=== PATIENT | female | born 1990 | race Caucasian/White ===

== ENCOUNTER → 2016-12-14 | Outpatient (CLI) | payer OTHER ==
[~2016-12-14] MED LIST: ALUMSUS2 PO; CALC500C3 PO; CLON0.5T3 PO; FAMO20TA11 PO; FLUT0.0529 NAE; MAGN400T6 PO; MULT-513 PO; NAPR-201 PO; ONDA4TAB65 PO; POLY335040 PO
== END | disposition home or self-care (01) ==
LOC: C.LABSPEC 17:06
PROVIDERS: ATTEND Urology
DX: R31.0 Gross hematuria (principal); R32 Unspecified urinary incontinence

== ENCOUNTER 2017-02-12 00:10 | Emergency (ER) | payer OTHER ==
[~2017-02-12] VITALS: Ht 171.5 cm; Wt 53.4 kg
[2017-02-12 00:15] VITALS: TEMP 36.7; Ht 171.5 cm; Wt 53.4 kg
[2017-02-12] MEDS ORDERED: DiphenhydrAMINE HCL 50 MG/ML VIAL IV STA (00:25)
[2017-02-12] MEDS ORDERED: PROCHLORPERAZINE 5 MG/ML 2 ML VIAL IV STA (00:25)
[2017-02-12] MEDS ORDERED: SODIUM CHLORIDE 0.9% 500ML 500 ML IV STA (00:25)
[2017-02-12] MEDS ORDERED: KETOROLAC TROMETHAMINE 30 MG/ML VIAL IV STA (00:25)
[2017-02-12 00:45] VITALS: O2SAT 98
[2017-02-12 01:00] LABS: BASO % 0.5 %; BASO ABS # 0.04 K/uL (0-0.2); EOS % 1.5 %; EOS ABS # 0.13 K/uL (0-0.5); HEMATOCRIT 38.9 % (37-47); HEMOGLOBIN 12.4 g/dL (12.0-16.0); IG# 0.02 K/uL (0.00-0.02); LYMPH % 25.5 %; LYMPH ABS # 2.21 K/uL (1.2-3.4); MEAN CELL VOLUME 88.6 fL (80-100); MEAN CORPUSCULAR HEMOGLOBIN 28.2 pg (25-34); MEAN CORPUSCULAR HGB CONC 31.9 g/dl (32-36); MEAN PLATELET VOLUME 9.9 fL (7.4-10.4); MONO % 9.6 %; MONO ABS # 0.83 K/uL (0.11-0.59); NEUT % 62.7 %; NEUT ABS # 5.42 K/uL (1.4-6.5); PLATELET COUNT 228 K/uL (130-400); RED CELL DISTRIBUTION WIDTH CV 12.7 % (11.5-14.5); RED CELL DISTRIBUTION WIDTH SD 41.2 fL (36.4-46.3); WHITE BLOOD COUNT 8.65 K/uL (4.8-10.8)
[2017-02-12 01:17] LABS: ALBUMIN 3.8 gm/dl (3.4-5.0); ALT/SGPT 18 U/L (12-78); BLOOD UREA NITROGEN 12 mg/dl (7-18); CALCIUM 8.3 mg/dl (8.5-10.1); CARBON DIOXIDE 26 mmol/L (21-32); GLUCOSE 101 mg/dl (70-99); POTASSIUM 3.5 mmol/L (3.5-5.1); SODIUM 138 mmol/L (136-145)
[2017-02-12 01:20] LABS: ALKALINE PHOSPHATASE 58 U/L (45-117); AST/SGOT 15 U/L (15-37); TOTAL PROTEIN 7.4 gm/dl (6.4-8.2)
[2017-02-12] MEDS ORDERED: TROLAMINE SALICYLATE 10% CRM 255 APPLN/85 GM TUBE EXT STA (02:27)
--- NOTE | 2017-02-12 02:42 | EMERGENCY ROOM VISIT NOTE ---
History First contact with patient: 00:20 Chief Complaint: FLANK PAIN Stated Complaint: MID LFT BACK PAIN,STOMACH PAIN,KIDNEY INFECTION History of Present Illness The patient is a 26 year old female who presents to the Emergency Room with complaints of right flank pain that radiates to her groin for the past few days steadily getting worse and is currently on Omnicef for kidney infection by [facility] for the past 2 days. No recent antibiotics. Patient states Keflex as makes her nauseous. She is not severely allergic to it. No recent UTIs. Patient denies chest pain, dyspnea, vomiting, diarrhea, vaginal itching or discharge. Pain currently 7 out of 10. Nothing makes it better or worse. It is described as aching. Review of Systems See HPI for pertinent positives & negatives. A total of 10 systems reviewed and were otherwise negative. Past Medical/Surgical History Medical Problems: (1) Anorexia (2) Anxiety (3) Depression (4) Tardive dyskinesia Surgical Problems: (1) S/P cholecystectomy Family History Patient reports no known family medical history. Social History Smoking Status: Never Smoker Alcohol Use: none Marital Status: in relationship Housing Status: lives with family Occupation Status: employed Current/Historical Medications Scheduled PRN Calcium Carbonate (Tums), 500-1,000 MG PO UD PRN for Heartburn Ondansetron Hcl (Zofran), 4 MG PO Q12H PRN for Nausea Physical Exam Vital Signs Date Time Temp Pulse Resp B/P (MAP) Pulse Ox O2 Delivery O2 Flow Rate FiO2 02/12/17 02:06 63 02/12/17 02:06 89 18 116/64 98 Room Air 02/12/17 00:45 98 Room Air 02/12/17 00:15 36.7 82 18 129/82 99 Room Air Physical Exam VITALS: Vitals are noted on the nurse's note and reviewed by myself. Vital signs stable. GENERAL: White female, in no acute distress, nondiaphoretic, well-developed well -nourished. SKIN: The skin was without rashes, erythema, edema, or bruising. There is no tenting of the skin. Capillary reflex less than 2 seconds. HEAD: Normocephalic atraumatic. EARS: External auditory canals clear, tympanic membranes pearly aranda without erythema or effusion bilaterally. EYES: Pupils equal round and reactive to light and accommodation. Conjunctivae without injection, sclerae without icterus. Extraocular movements intact. NOSE: Patent, turbinates without inflammation or discharge. MOUTH: Mucous membranes moist. Pharynx without erythema or exudate. Uvula midline. Airway patent. Tongue does not deviate. NECK: Supple without nuchal rigidity. No lymphadenopathy. No thyromegaly. Cervical spine is nontender. No JVD. HEART: Regular rate and rhythm without murmurs gallops or rubs. LUNGS: Clear to auscultation bilaterally without wheezes, rales or rhonchi. No dullness to percussion. No retractions or accessory muscle use. ABDOMEN: Positive bowel sounds x 4. Normal tympanic percussion. Soft, nontender, without masses or organomegaly. Finnegan sign negative. No guarding or rebound tenderness. Left CVA tenderness MUSCULOSKELETAL: No muscle atrophy, erythema, or edema noted. NEURO: Patient was alert and oriented to person place and time. Normal sensation to light and sharp touch. No focal neurological deficits. Medical Decision & Procedures Laboratory Results 02/12/17 00:45 Red Blood Count 4.39, Mean Corpuscular Volume 88.6, Mean Corpuscular Hemoglobin 28.2, Mean Corpuscular Hemoglobin Concent 31.9, Mean Platelet Volume 9.9, Neutrophils (%) (Auto) 62.7, Lymphocytes (%) (Auto) 25.5, Monocytes (%) (Auto) 9.6, Eosinophils (%) (Auto) 1.5, Basophils (%) (Auto) 0.5, Neutrophils # (Auto) 5.42, Lymphocytes # (Auto) 2.21, Monocytes # (Auto) 0.83, Eosinophils # (Auto) 0.13, Basophils # (Auto) 0.04 02/12/17 00:45 Test 02/12/17 00:40 02/12/17 00:45 Urine Color YELLOW Urine Appearance CLEAR (CLEAR) Urine pH 6.0 (4.5-7.5) Urine Specific [place] 1.019 (1.000-1.030) Urine Protein NEG (NEG) Urine Glucose (UA) NEG (NEG) Urine Ketones NEG (NEG) Urine Occult Blood NEG (NEG) Urine Nitrite NEG (NEG) Urine Bilirubin NEG (NEG) Urine Urobilinogen NEG (NEG) Urine Leukocyte Esterase NEG (NEG) Urine Test NEG (NEG) White Blood Count 8.65 K/uL (4.8-10.8) Red Blood Count 4.39 M/uL (4.2-5.4) Hemoglobin 12.4 g/dL (12.0-16.0) Hematocrit 38.9 % (37-47) Mean Corpuscular Volume 88.6 fL (80-100) Mean Corpuscular Hemoglobin 28.2 pg (25-34) Mean Corpuscular Hemoglobin Concent 31.9 g/dl (32-36) Platelet Count 228 K/uL (130-400) Mean Platelet Volume 9.9 fL (7.4-10.4) Neutrophils (%) (Auto) 62.7 % Lymphocytes (%) (Auto) 25.5 % Monocytes (%) (Auto) 9.6 % Eosinophils (%) (Auto) 1.5 % Basophils (%) (Auto) 0.5 % Neutrophils # (Auto) 5.42 K/uL (1.4-6.5) Lymphocytes # (Auto) 2.21 K/uL (1.2-3.4) Monocytes # (Auto) 0.83 K/uL (0.11-0.59) Eosinophils # (Auto) 0.13 K/uL (0-0.5) Basophils # (Auto) 0.04 K/uL (0-0.2) RDW Standard Deviation 41.2 fL (36.4-46.3) RDW Coefficient of Variation 12.7 % (11.5-14.5) Immature Granulocyte % (Auto) 0.2 % Immature Granulocyte # (Auto) 0.02 K/uL (0.00-0.02) Anion Gap 6.0 mmol/L (3-11) Est Creatinine Clear Calc Drug Dose 90.6 ml/min Estimated GFR () 118.8 Estimated GFR (Non- 102.5 BUN/Creatinine Ratio 15.3 (10-20) Calcium Level 8.3 mg/dl (8.5-10.1) Total Bilirubin 0.3 mg/dl (0.2-1) Direct Bilirubin < 0.1 mg/dl (0-0.2) Aspartate Amino Transf (AST/SGOT) 15 U/L (15-37) Alanine Aminotransferase (ALT/SGPT) 18 U/L (12-78) Alkaline Phosphatase 58 U/L (45-117) Total Protein 7.4 gm/dl (6.4-8.2) Albumin 3.8 gm/dl (3.4-5.0) Medications Administered Medications (Trade) Dose Ordered Sig/Kasia Route Start Time Stop Time Status Last Admin Dose Admin Ketorolac Tromethamine (Toradol Inj) 30 mg NOW STAT IV 02/12/17 00:25 02/12/17 00:28 DC 02/12/17 01:00 30 MG Prochlorperazine Edisylate (Compazine Inj) 5 mg NOW STAT IV 02/12/17 00:25 02/12/17 00:28 DC 02/12/17 00:59 5 MG Diphenhydramine HCl (Benadryl Inj) 12.5 mg NOW STAT IV 02/12/17 00:25 02/12/17 00:28 DC 02/12/17 00:59 12.5 MG Sodium Chloride 500 ml @ 999 mls/hr Q31M STAT IV 02/12/17 00:25 02/12/17 00:55 DC 02/12/17 01:02 999 MLS/HR ED Course Prior records/ancillary studies reviewed. Triage Nursing notes reviewed. Additional history obtained from friend The patient's history was concerning for left flank pain. Differential diagnosis: Etiologies such as ovarian cyst, torsion, pyelonephritis, appendicitis, diverticulitis, PUD, biliary pathology, UTI, pancreatitis, obstruction, mesenteric ischemia, aortic pathology, infections, inflammatory bowel disease, renal colic, as well as others were entertained. Physical examination findings: As above. ER treatment provided: Toradol, Compazine, Benadryl, IV fluids On reassessment the patient felt better. Diagnostics interpreted by me: The labs revealed negative urine. No leukocytosis. Negative hCG Imaging studies: Ultrasound of the kidney showed no hydronephrosis per radiology I did attempt to obtain the records from [facility] for review. We were able to obtain them and I did review them. Patient's urinalysis showed microscopic 2-5 white blood cells. Epithelial cells were present. Exam and history seem consistent with left flank pain that most likely is muscular in nature. Patient was afebrile and nontoxic. No urine infection. I did obtain the urine results from the facility and appeared to be negative.. Patient did not have acute abdomen on exam. She is well-appearing. She is neurovascularly and neurologically intact. Patient did feel somewhat antsy on the Compazine. She is given Benadryl. She is advised to rest, stay well- hydrated and follow-up family care in a day or 2 or here in the ER sooner for chest pain, difficulty breathing, abdominal pain, fevers, worsening signs or symptoms or as needed. By the evaluation outlined above emergent etiologies such as appendicitis, diverticulitis, PUD, biliary pathology, UTI, pancreatitis, obstruction, mesenteric ischemia, aortic pathology, infections, inflammatory bowel disease, renal colic, as well as others were deemed relatively unlikely. The pt informed about the findings as listed above. All questions were answered and pleased with the treatment. Return instructions were outlined and the patient was discharged in stable condition. Referral: The patient was referred back to their primary care physician for follow-up in 2 to 3 days for a recheck of the current condition. Case reviewed with my attending Medical Decision As above Medication Reconcilliation Current Medication List: was personally reviewed by me Blood Pressure Screening Patient's blood pressure: Normal blood pressure Impression Primary Impression: Left flank pain Departure Information Referrals Jessee Rice D.O. (PCP) Patient Instructions My [facility]
[2017-02-12 02:43] VITALS: BP 113/64; PULSE 69; O2SAT 98
[2017-02-12] MEDS ORDERED: BENADRYL HOME PACK 25 MG TAB PO ONE (02:45)
--- NOTE | 2017-02-12 07:28 | DIAGNOSTIC IMAGING REPORT ---
RENAL ULTRASOUND CLINICAL HISTORY: Left flank pain. COMPARISON STUDY: Abdominal ultrasound December 02, 2013. TECHNIQUE: Sonography of the kidneys and the urinary bladder was performed. FINDINGS: The right kidney measures 11.1 x 4 x 5.1 cm and the left measures 11.2 x 5.2 x 5.6 cm. There is no hydronephrosis. Renal echogenicity, size and cortical thickness are normal. No calculi are identified by sonography. Apparent bladder wall thickening is accentuated by underdistention. Neither ureteral jet was identified. IMPRESSION: 1. Normal sonographic appearance of the kidneys. No hydronephrosis. 2. Mild bladder wall thickening which is likely due to underdistention although could be correlated with urinalysis. Electronically signed by: Sav Spencer M.D. 02/12/2017 7:27 AM Dictated Date/Time: 02/12/2017 7:26 AM
== END 2017-02-12 02:44 | disposition home or self-care (01) ==
LOC: C.EDB 00:12
DX: R10.9 Unspecified abdominal pain (principal); G24.01 Drug induced subacute dyskinesia; Z90.49 Acquired absence of other specified parts of digestive tract

== ENCOUNTER → 2017-05-05 | Outpatient (CLI) | payer OTHER ==
[~2017-05-05] MED LIST changes: -ALUMSUS2 PO; -CLON0.5T3 PO; -FAMO20TA11 PO; -FLUT0.0529 NAE; +GADAVIST IV PRN; -MAGN400T6 PO; -MULT-513 PO; -NAPR-201 PO; -POLY335040 PO
--- NOTE | 2017-05-05 18:21 | DIAGNOSTIC IMAGING REPORT ---
MRI OF THE BRAIN COMBO CLINICAL HISTORY: Seizures. Vertigo. Headache. COMPARISON STUDY: MRI of the brain dated 11/14/2012. TECHNIQUE: MRI of the brain was performed utilizing various T1 and T2-weighted sequences in the axial, sagittal, and coronal planes. Contrast-enhanced sequences were acquired following the administration of 5 cc of Gadavist. The examination is performed using the seizure protocol. FINDINGS: Brain parenchyma: The brain parenchyma is normal in appearance. There is no hemorrhage or mass effect. There is no restricted diffusion to suggest acute ischemia. No enhancing mass lesion is identified on the postcontrast images. Silva-white matter differentiation is preserved. No extra-axial fluid collection is seen. The cerebellar tonsils are normal in configuration. The hippocampi are normal and symmetric. Ventricles, sulci, and cisterns: Normal in configuration. Pituitary and sella: Unremarkable. Intracranial vasculature: Normal flow voids are maintained at the skull base. Orbits: The bony orbits are grossly intact. Orbital contents are normal in appearance. Sinuses and mastoids: No acute intracranial abnormality. Trace mucosal thickening is seen in the sphenoid sinuses. The remaining paranasal sinuses and the mastoid air cells are clear. Calvarium: Unremarkable. Cervical cord: Partially visualized cervical spinal cord is normal in morphology and signal intensity. IMPRESSION: Normal examination. Electronically signed by: Joseph Justin M.D. 05/05/2017 6:20 PM Dictated Date/Time: 05/05/2017 6:15 PM
== END | disposition home or self-care (01) ==
LOC: C.MRI 17:05
PROVIDERS: ATTEND Physician Assistant
DX: G40.909 Epilepsy, unspecified, not intractable, without status epilepticus (principal); R42 Dizziness and giddiness

== ENCOUNTER → 2017-05-31 | Outpatient (CLI) | payer OTHER ==
[~2017-05-31] MED LIST changes: -GADAVIST IV PRN
== END | disposition home or self-care (01) ==
LOC: C.LAB1850 13:12
PROVIDERS: ATTEND Internal Medicine Nephrology
DX: R31.0 Gross hematuria (principal)

== ENCOUNTER 2024-11-27 14:25 | Inpatient (IN) ==
--- NOTE | 2024-11-27 14:45 | Emergency Department Note ---
Impression & Plan Urinary tract obstruction by kidney stone, UTI (urinary tract infection) ED Provider Note CHIEF COMPLAINT: Back and abdominal pain HISTORY OF PRESENTING ILLNESS: The patient is a pleasant, 34-year-old female who arrives to the emergency department for right abdominal pain, and right back pain. She reports she was seen at [facility], and had an ultrasound performed on her right kidney, which showed swelling, and hydronephrosis. She states they were suspicious for an obstructing stone, however, did not see 1 on imaging. Urinalysis was positive for infection, and the patient was given Keflex. She has been taking the medication since Monday, however has had persistent nausea, with decreased appetite. She reports no fevers, however she has chills. She reports no urinary symptoms. She is visibly uncomfortable. REVIEW OF SYSTEMS: See HPI for pertinent positives and pertinent negatives. ALLERGIES: See below MEDICATIONS: See below PAST MEDICAL HISTORY: See below PHYSICAL EXAM: VITALS: Vitals are noted on the nurse's note and reviewed by myself. Vital signs stable. GENERAL: 34-year-old female, in no acute distress, nondiaphoretic, well- developed well-nourished. HEART: Regular rate and rhythm without murmurs gallops or rubs. LUNGS: Clear to auscultation bilaterally without wheezes, rales or rhonchi. No retractions or accessory muscle use. ABDOMEN: Positive bowel sounds x 4. Soft, tender to palpation right lower quadrant, no rebound tenderness or guarding. No CVA TTP. MUSCULOSKELETAL: No muscle atrophy, erythema, or edema noted. Normal gait. Strength 5/5 throughout. NEURO: Patient was alert and oriented to person place and time. No focal neurological deficits. DIFFERENTIAL DIAGNOSIS: Appendicitis, ovarian cyst, ovarian torsion, ectopic , TOA, PID, infections, diverticulitis, UTI, obstruction, mesenteric ischemia, aortic pathology, inflammatory bowel disease, renal colic, PUD, pancreatitis, biliary pathology, hernia, volvulus, constipation, as well as other pathologies. ED COURSE AND MEDICAL DECISION MAKING: MEDICATIONS GIVEN: 1 L NSS bolus, 4 mg IV Zofran, 15 mg IV Toradol INTERPRETATION OF LABS: I interpreted the labs with full lab results as below in the lab section of this note. Pertinent lab results discussed in the MDM section below. INTERPRETATION OF IMAGING: Imaging studies were interpreted by myself and read by radiology as per the imaging section of this note. MDM SUMMARY: The patient is a pleasant, 34-year-old female who arrives to the emergency department for evaluation of the above-stated complaint. Saline lock was established, lab work was obtained. CBC shows slight leukocytosis, no anemia. CMP is unremarkable. Lipase negative. hCG qualitative negative. Urinalysis shows 2+ ketones, 2+ blood, 1+ leukocyte esterase, 11-[address] imaging of the abdomen and pelvis without contrast was obtained which from interpretation shows an obstructing 7 mm proximal ureteral stone causing hydroureteronephrosis. Patient also has a right ovarian cyst, with mild pelvic free fluid. Patient was provided IV fluids, IV Toradol, and IV Zofran. Upon reevaluation she reports no significant improvement in symptoms. IV acetaminophen, was provided, as well as a second dose of IV Toradol. Due to the patient's presence of the stone, and positive urinalysis, IV antibiotics were administered. She will require admission to the hospital for pain control, fluids, and likely stenting. I consulted Dr. Gage from urology, who agreed to evaluate the patient, and likely stent her tomorrow. [facility]. Please refer to their documentation, as well as Dr. Engle's documentation for further patient workup and care. DIAGNOSIS: [] The chart was completed utilizing [employer] voice recognition software. Grammatical errors, random word insertions, pronoun errors, and incomplete sentences are an occasional consequence of this system due to software limitations, ambient noise, and hardware issues. Any formal questions or concerns about the content, text, or information contained within the body of this dictation should be directly addressed to the provider for clarification. 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 headache COVID-19 (Acute) COVID-19 (Acute) Encounter for pre-operative examination Encounter for pre-operative examination Tardive dyskinesia (Chronic 10/05/12) Abdominal pain (Acute) Viral infection (Acute) Acute sinusitis (Acute) Nausea (Acute) Acute sinusitis (Acute) Dentalgia (Acute) Anorexia (Chronic) Constipation (Acute) GERD (gastroesophageal reflux disease) (Acute) GERD (gastroesophageal reflux disease) (Acute) Ovarian cyst (Acute) Medical History (Updated 11/27/24 @ 18:01 by GOKUL Castro) Nausea and vomiting after administration of anesthetic agent Kidney stones Hiatal hernia Vertigo Depression Anxiety Temporal lobe epilepsy pt states one neurologist said she had it, another said she didnt. Currently not taking any meds. gets "auras", denies any grand mal. Last aura was 1st week of jan 2018 Anorexia Migraine Surgical History History of esophagogastroduodenoscopy (EGD) History of cholecystectomy History of tooth extraction wisdom teeth History of nasal septoplasty Family History Father Family history of diabetes mellitus Grandmother (Paternal) Family history of diabetes mellitus Grandmother (Maternal) Family history of diabetes mellitus Uncle Family history of diabetes mellitus Social History Smoking Status: Never smoker Second Hand Exposure: Yes (MOTHER SMOKES HEAVILY); Do You Dip or Chew Tobacco: No; Hx Alcohol Use: Yes Alcohol type: wine and hard liquor Hx Substance Use: No Preferred Language: Latvian Communication Ability: Effective 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: No Beliefs That Will Affect Care: None Current Living Situation: Parent Feels Safe at Home: Yes Assistive Devices: None Allergies Allergies Allergy/AdvReac Type Severity Reaction Status Date / Time meperidine Allergy Severe ANAPHYLAXIS Verified 02/23/21 19:26 shellfish derived Allergy Intermediate HIVES/ITCHING Verified 02/23/21 19:26 THROAT prochlorperazine AdvReac Severe dizziness, Verified 02/23/21 19:26 [From Compazine] tachycardia, restless asenapine AdvReac Intermediate EXTREME Verified 02/23/21 19:26 MOOD CHANGES fluoxetine AdvReac Intermediate DYSTONIA Verified 02/23/21 19:26 olanzapine AdvReac Intermediate FACE Verified 02/23/21 19:26 MUSCLE CONTRACTURES Proton Pump Inhibitors AdvReac Intermediate DIARRHEA Verified 02/23/21 19:26 ziprasidone AdvReac Intermediate TACHYCARDIA Verified 02/23/21 19:26 Home Meds Home Medications Medication Instructions Recorded Confirmed cephalexin 500 mg capsule 500 mg PO BID for 5 days 11/27/24 11/27/24 lamotrigine 100 mg tablet 0 mg PO BID 11/27/24 11/27/24 lamotrigine 25 mg tablet 0 mg PO UD 11/27/24 11/27/24 ondansetron 4 mg disintegrating 4 mg PO UD PRN n/v 11/27/24 11/27/24 tablet Previous Rx's Medication Instructions Recorded magnesium glycinate 400 mg (4 x 100 mg magnesium) PO 07/28/22 DAILY #120 caps Results & Data (ED) Vital Signs Vital Signs - 24 hr 11/27/24 14:27 Temperature 36.1 C L Temperature Source Temporal Artery Scan Pulse Rate 81 Respiratory Rate 18 Respiratory Effort / Characteristics Non-Labored Spontaneous Respiratory Depth Normal Respiratory Pattern Regular Blood Pressure 130/78 Blood Pressure Mean 95 Pulse Oximetry 100 Oxygen Delivery Method Room Air Sepsis Recent Fever Within 48 Hours No Sepsis New/Unexplained Change in Mental Status No Sepsis Action Taken by Nursing No Action Required Laboratory Data 11/27/24 14:54 11/27/24 14:54 Lab Results 11/27/24 11/27/24 Range/Units 14:54 15:35 WBC 11.00 H (4.8-10.8) K/ul RBC 4.25 (4.20-5.40) M/uL Hgb 12.5 (12.0-16.0) g/dl Hct 37.2 (37.0-47.0) % MCV 87.5 (80.0-100.0) fL MCH 29.4 (25.0-34.0) pg MCHC 33.6 (32.0-36.0) g/dL RDW Std Deviation 40.8 (36.4-46.3) fL RDW Coeff of Chang 12.8 (11.5-14.5) % Plt Count 233 (130-400) K/uL MPV 10.2 (9.4-12.4) fL Immature Gran % (Auto) 0.4 % Neut % (Auto) 81.2 % Lymph % (Auto) 10.3 % Frio % (Auto) 7.4 % Eos % (Auto) 0.2 % Baso % (Auto) 0.5 % Neut # (Auto) 8.95 H (1.40-6.50) K/uL Lymph # (Auto) 1.13 L (1.20-3.40) K/uL Frio # (Auto) 0.81 H (0.11-0.59) K/uL Eos # (Auto) 0.02 (0.00-0.50) K/uL Baso # (Auto) 0.05 (0.00-0.20) K/uL Immature Gran # (Auto) 0.04 (0.01-0.20) K/uL Sodium 137 (136-145) mmol/L Potassium 3.7 (3.5-5.1) mmol/L Chloride 104 (98-107) mmol/L Carbon Dioxide 24 (21-32) mmol/L Anion Gap 9 (3-11) BUN 15 (6-23) mg/dl Creatinine 1.11 (0.6-1.2) mg/dl Est Cr Clr Drug Dosing Not Reportable eGFR 67.31 BUN/Creatinine Ratio 13.5 (10-20) Glucose 86 (70-99(Fasting)) mg/dl Calcium 9.3 (8.6-10.3) mg/dl Total Bilirubin 0.9 (0.2-1.0) mg/dl AST 16 (13-39) U/L ALT 8 (7-52) U/L Alkaline Phosphatase 52 (34-104) U/L Total Protein 7.9 (6.0-8.3) gm/dl Albumin 4.4 (3.4-5.0) gm/dl Globulin 3.5 (2.5-4.0) gm/dl Albumin/Globulin Ratio 1.3 (0.9-2) Lipase 25 (11-82) U/L HCG, Qual Negative (Negative) Urine Color Yellow Urine Appearance Clear (Clear) Urine pH 6.5 (4.5-7.5) Ur Specific [place] 1.017 (1.000-1.030) Urine Protein Negative (Negative) Urine Glucose (UA) Negative (Negative) Urine Ketones 2+ H (Negative) Urine Blood 2+ H (Negative) Urine Nitrite Negative (Negative) Urine Bilirubin Negative (Negative) Urine Urobilinogen Negative (Negative) Ur Leukocyte Esterase 1+ H (Negative) Urine WBC (Auto) 11-20 H (0-5) /hpf Urine RBC (Auto) 11-20 H (0-2) /hpf U Hyaline Cast (Auto) 0-2 (0-2) /lpf U Epithel Cells (Auto) 0-2 (0-2) /hpf Urine Bacteria (Auto) None Seen (None Seen) Urine Comment Administered Medications Parenteral Electrolytes (Plasma-Lyte A Ph 7.4) 1,000 mls @ 80 mls/hr IV .[id number] JOHN Stop: 11/28/24 18:14 Last Admin: 11/27/24 17:38 Dose: 80 mls/hr Documented By: JUDE Discontinued Medications Sodium Chloride (Nss) 1,000 mls @ 999 mls/hr IV .[id number] STA Stop: 11/27/24 15:45 Last Infusion: 11/27/24 16:37 Dose: Infused Documented By: Admin: 11/27/24 14:54 Dose: 999 mls/hr Documented By: QGV Acetaminophen (Ofirmev) 1,000 mg in 100 mls @ 400 mls/hr IV NOW STA Stop: 11/27/24 16:12 Last Infusion: 11/27/24 16:37 Dose: Infused Documented By: Admin: 11/27/24 16:19 Dose: 400 mls/hr Documented By: cad Ceftriaxone Sodium (Rocephin) 1,000 mg in 50 mls @ 100 mls/hr IV NOW STA Stop: 11/27/24 16:45 Last Infusion: 11/27/24 17:33 Dose: Infused Documented By: Admin: 11/27/24 16:56 Dose: 100 mls/hr Documented By: cad Ketorolac Tromethamine (Ketorolac Tromethamine 15 Mg/Ml Vial) 15 mg IV NOW STA Stop: 11/27/24 14:46 Last Admin: 11/27/24 14:54 Dose: 15 mg Documented By: QGV Ketorolac Tromethamine (Ketorolac Tromethamine 15 Mg/Ml Vial) 15 mg IV NOW ONE Stop: 11/27/24 15:59 Last Admin: 11/27/24 16:19 Dose: 15 mg Documented By: roman Ondansetron HCl (Ondansetron Inj 2 Mg/Ml 2 Ml Vial) 4 mg IV NOW STA Stop: 11/27/24 14:46 Last Admin: 11/27/24 14:54 Dose: 4 mg Documented By: QGV Imaging Data Radiologist's Impression: Abdomen/Pelvis CT 11/27/24 14:45 CT SCAN OF THE ABDOMEN AND PELVIS WITHOUT IV CONTRAST CLINICAL HISTORY: Right flank pain. COMPARISON STUDY: Abdominal CT dated 03/16/2013. TECHNIQUE: CT scan of the abdomen and pelvis is performed from the lung bases to the proximal femora. Images are reviewed in the axial, sagittal, and coronal planes. IV contrast was not administered for this examination. A dose lowering technique was utilized adhering to the principles of ALARA. CT DOSE: 392.21 mGy.cm FINDINGS: Lung bases: The heart is normal in size and without pericardial effusion. The lung bases are clear. Liver: The unenhanced liver is normal in size, contour, and attenuation. There is no intrahepatic biliary ductal dilatation. Gallbladder: Surgically absent noting clips in the gallbladder fossa. Spleen: Normal in size and attenuation. Pancreas: Unremarkable. Adrenal glands: Unremarkable. Kidneys: The unenhanced kidneys are normal in size. There is a 7 mm obstructing calculus in the right proximal ureter at L4-L5 seen on image #154. This causes moderate right hydroureteronephrosis. The right kidney is edematous and there is right-sided perinephric stranding/fluid. No additional right renal calculi are identified. No left renal calculi are seen and there is no left ureteral stone. There is no evidence of contour deforming renal mass lesion. Abdominal vasculature: The abdominal aorta is normal in course and caliber. Bowel: There is no bowel obstruction. Moderate fecal retention is seen throughout the colon. The appendix is not visualized. Question postsurgical change in the right lower quadrant. Peritoneum: There is no intraperitoneal free air or abdominal ascites. A naval piercing is in place. Lymphadenopathy: None. Pelvic viscera: The bladder and uterus are normal as visualized. A 5 cm cystic structure suggested in the right ovary on image #40. 3 fluid is noted in the cul-de-sac. Skeletal structures: No lytic or blastic lesions are seen. IMPRESSION: 1. There is a 7 mm obstructing calculus in the right proximal ureter. This causes moderate right hydroureteronephrosis. 2. No additional renal calculi are clearly identified in either kidney. 3. There is a 5 cm cystic structure in the posterior right adnexa, likely representing an ovarian cyst. 4. Free fluid in cul-de-sac is nonspecific and likely physiologic. 5. Additional findings as above. ACT 112: Negative or not required by law. Electronically signed by: Joseph Justin M.D. 11/27/2024 3:41 PM Discharge Plan Visit Data Chief Complaint: Abdominal Pain Stated Complaint: BACK ABD PAIN SEVERE ED Provider: Kasey Hernandez ED Midlevel Provider: Mercedes Parra Discharge Problem: Urinary tract obstruction by kidney stone, UTI (urinary tract infection) Patient Disposition: Admitted As Inpatient Condition: Fair Forms Stand Alone Forms: [facility] [employer] Prescriptions Prescriptions: No Action magnesium glycinate 100 mg magnesium capsule 400 mg PO DAILY Qty: 120 2RF Patient Comments: 11/27- otc unable to verify cephalexin 500 mg capsule 500 mg PO BID Patient Comments: filled 11/25 5 day supply #10 ondansetron 4 mg tablet,disintegrating 4 mg PO UD PRN (Reason: n/v) lamotrigine 25 mg tablet 0 mg PO UD Patient Comments: last filled 08/12 21 day supply #164 Rx Instructions: 25 mg PO bid X 1 week, then 50mg bid X 1 week, then 75mg bid X 1 week lamotrigine 100 mg tablet 0 mg PO BID Patient Comments: 11/27- No fill history unable to verify Referrals Referrals: PCP,NO [Physician] -
[2024-11-27] MEDS: SODIUM CHLORIDE 0.9% 1,000 ML IV STA (14:54)
[2024-11-27] MEDS: KETOROLAC TROMETHAMINE 15 MG/ML VIAL IV STA (14:54)
[2024-11-27] MEDS: ONDANSETRON INJ 2 MG/ML 2 ML VIAL IV STA (14:54)
[2024-11-27 15:07] LABS: Hematocrit (blood only) 37.2 % (37.0-47.0); Hemoglobin 12.5 g/dl (12.0-16.0); Immature Granulocytes # (auto) 0.04 K/uL (0.01-0.20); Immature Granulocytes % (auto) 0.4 %; Mean Corpuscular Hemoglobin 29.4 pg (25.0-34.0); Mean Corpuscular Volume 87.5 fL (80.0-100.0); Platelet Count 233 K/uL (130-400); RDW Standard Deviation 40.8 fL (36.4-46.3); Red Blood Count 4.25 M/uL (4.20-5.40); White Blood Count 11.00 K/ul (4.8-10.8)
[2024-11-27 15:25] LABS: Alanine Aminotransferase 8 U/L (7-52); Albumin Globulin Ratio 1.3 (0.9-2); Albumin Level 4.4 gm/dl (3.4-5.0); Alkaline Phosphatase 52 U/L (34-104); Anion Gap 9 (3-11); Bilirubin,Total 0.9 mg/dl (0.2-1.0); Blood Urea Nitrogen 15 mg/dl (6-23); Calcium 9.3 mg/dl (8.6-10.3); Carbon Dioxide 24 mmol/L (21-32); Chloride 104 mmol/L (98-107); Globulin 3.5 gm/dl (2.5-4.0); Glucose 86 mg/dl (70-99(Fasting)); Lipase 25 U/L (11-82); Potassium 3.7 mmol/L (3.5-5.1); Sodium 137 mmol/L (136-145); Total Protein 7.9 gm/dl (6.0-8.3)
[2024-11-27 15:36] LABS: Pregnancy Test, Serum Negative (Negative)
--- NOTE | 2024-11-27 15:44 | CT Scan Report ---
CT SCAN OF THE ABDOMEN AND PELVIS WITHOUT IV CONTRAST CLINICAL HISTORY: Right flank pain. COMPARISON STUDY: Abdominal CT dated 03/16/2013. TECHNIQUE: CT scan of the abdomen and pelvis is performed from the lung bases to the proximal femora. Images are reviewed in the axial, sagittal, and coronal planes. IV contrast was not administered for this examination. A dose lowering technique was utilized adhering to the principles of ALARA. CT DOSE: 392.21 mGy.cm FINDINGS: Lung bases: The heart is normal in size and without pericardial effusion. The lung bases are clear. Liver: The unenhanced liver is normal in size, contour, and attenuation. There is no intrahepatic david iary ductal dilatation. Gallbladder: Surgically absent noting clips in the gallbladder fossa. Spleen: Normal in size and attenuation. Pancreas: Unremarkable. Adrenal glands: Unremarkable. Kidneys: The unenhanced kidneys are normal in size. There is a 7 mm obstructing calculus in the right proximal ureter at L4-L5 seen on image #154. This causes moderate right hydroureteronephrosis. The r ight kidney is edematous and there is right-sided perinephric stranding/fluid. No additional right re nal calculi are identified. No left renal calculi are seen and there is no left ureteral stone. There is no evidence of contour deforming renal mass lesion. Abdominal vasculature: The abdominal aorta is normal in course and caliber. Bowel: There is no bowel obstruction. Moderate fecal retention is seen throughout the colon. The appe ndix is not visualized. Question postsurgical change in the right lower quadrant. Peritoneum: There is no intraperitoneal free air or abdominal ascites. A naval piercing is in place. Lymphadenopathy: None. Pelvic viscera: The bladder and uterus are normal as visualized. A 5 cm cystic structure suggested in the right ovary on image #40. 3 fluid is noted in the cul-de-sac. Skeletal structures: No lytic or blastic lesions are seen. IMPRESSION: 1. There is a 7 mm obstructing calculus in the right proximal ureter. This causes moderate right hydr oureteronephrosis. 2. No additional renal calculi are clearly identified in either kidney. 3. There is a 5 cm cystic structure in the posterior right adnexa, likely representing an ovarian cys t. 4. Free fluid in cul-de-sac is nonspecific and likely physiologic. 5. Additional findings as above. ACT 112: Negative or not required by law. Electronically signed by: Joseph Justin M.D. 11/27/2024 3:41 PM
[2024-11-27 16:04] LABS: Appearance Urine Clear (Clear); Bacteria Urine Automated None Seen (None Seen); Cast Urine Automated 0-2 /lpf (0-2); Epithelial Cell Urine Auto 0-2 /hpf (0-2); Glucose Urine UA Negative (Negative)
[2024-11-27] MEDS: KETOROLAC TROMETHAMINE 15 MG/ML VIAL IV ONE (16:19)
[2024-11-27] MEDS: ACETAMINOPHEN 1,000 MG/100 ML VIAL IV STA (16:19)
--- NOTE | 2024-11-27 16:46 | History & Physical Report ---
Date of Service November 27, 2024 Assessment & Plan (1) UTI (urinary tract infection): (2) Urinary tract obstruction by kidney stone: Plan This patient is a 34-year-old female with PMH of kidney stones who presents on 11/27 for right flank pain. Patient originally went to [facility] ED on 11/25, but declined to A/P CT at that time. They obtained an ultrasound at bedside, which revealed hydronephrosis and presumed kidney stone. Patient was discharged on Keflex and recommended follow-up with urology. However, on 11/27, she reported that the pain became unbearable and she came to the hospital #Right-sided kidney stone | UTI A/P CT revealed a 7mm obstructing calculus in the right proximal ureter with moderate hydroureteronephrosis Urology consult appreciated Will plan for potential urologic intervention on 11/28 NPO at midnight IV Zofran as needed IV acetaminophen and Toradol as needed IV Ceftriaxone 1000 q24h IVF with Plasma-Lyte at 80mL/hr x 2 L #Ovarian cyst 5 cm cystic structure noted on A/P CT on the posterior right adnexa Patient reports she was aware of this; follows an outpatient Disposition: Admit to [facility] VTE PPx: Low risk, encourage ambulation History of Present Illness Chief Complaint: Abdominal Pain Primary Care Provider: Wallace Frias PA-C Mrs. Berrios is a 34-year-old female with PMH of kidney stones and migraines. She presented on 11/27 for intractable right lower back, flank, and lower quadrant pain. Patient was recently at [facility] on Saturday 11/25 due to this pain. At that time, she declined an A/P CT due to prior medical history. They obtained an ultrasound that showed hydronephrosis, and a positive UA for UTI. At that time, she was told that she likely had a kidney stone, and needed to connect with a urologist. She was discharged on Keflex from [facility]. Today, her right flank pain became unbearable. She reported it was the "worst pain of her life"; 9 out of 10 earlier today. She did take ibuprofen and Tylenol at home to take the edge off, but this did not help. Thus, she decided to drive here from [place]. The pain radiates down towards her right groin. It is currently a 4/10, and well-controlled with IV acetaminophen and Toradol in the ED. Patient does have a prior history of kidney stones, with the last kidney stone being 5 mm; the stone passed independently. Additionally, patient reports that she had an episode of chest pain in the ED while sitting in her chair that lasted 5 minutes. No prior cardiac history or history of MIs. She believes it was either due to the her anxiety or the abdominal pain being overwhelming. Patient is not currently on medications on a daily basis. She was previously on lamotrigine for her migraines and fibromyalgia. Patient does have a severe allergy to Demerol, and was told never to take this medication. She was tolerating the Keflex well prior to coming to the hospital, and is amenable to trying IV ceftriaxone while in the hospital. Additionally, she endorses nausea but no vomiting at home. Patient denies smoking, tobacco use, alcohol use, or IV drug use. She has a 2-year-old daughter (Myranda); family is watching her daughter. Patient's vitals are stable at time of admission. ED Course: Toradol 15 mg IV x 2 NSS 1000 L IV Acetaminophen 1000 mg IV Ceftriaxone 1000 mg IV Zofran 4 mg IV ROS: Patient endorses chills/rigors, lightheadedness, crushing chest pain on arrival (resolved), RLQ abdominal pain, right flank pain, right lower back pain, and nausea. Patient denies fevers, night-sweats, headache, vomiting, diarrhea, burning with urination, blood in the urine, blood in the bowel, or numbness/tingling in the arms or legs. Allergies Allergy/AdvReac Type Severity Reaction Status Date / Time meperidine Allergy Severe ANAPHYLAXIS Verified 02/23/21 19:26 shellfish derived Allergy Intermediate HIVES/ITCHING Verified 02/23/21 19:26 THROAT prochlorperazine AdvReac Severe dizziness, Verified 02/23/21 19:26 [From Compazine] tachycardia, restless asenapine AdvReac Intermediate EXTREME Verified 02/23/21 19:26 MOOD CHANGES fluoxetine AdvReac Intermediate DYSTONIA Verified 02/23/21 19:26 olanzapine AdvReac Intermediate FACE Verified 02/23/21 19:26 MUSCLE CONTRACTURES Proton Pump Inhibitors AdvReac Intermediate DIARRHEA Verified 02/23/21 19:26 ziprasidone AdvReac Intermediate TACHYCARDIA Verified 02/23/21 19:26 Home Medications Medication Instructions Recorded Confirmed Type magnesium glycinate 400 mg (4 x 100 mg magnesium) PO 07/28/22 11/27/24 Rx DAILY #120 caps cephalexin 500 mg capsule 500 mg PO BID for 5 days 11/27/24 11/27/24 History lamotrigine 100 mg tablet 0 mg PO BID 11/27/24 11/27/24 History lamotrigine 25 mg tablet 0 mg PO UD 11/27/24 11/27/24 History ondansetron 4 mg disintegrating 4 mg PO UD PRN n/v 11/27/24 11/27/24 History tablet tramadol 50 mg tablet 50 mg PO Q6H PRN pain #20 tabs 11/28/24 Rx oxybutynin chloride 5 mg 5 mg PO DAILY #14 tabs 11/29/24 Rx tablet,extended release 24 hr phenazopyridine 200 mg tablet 200 mg PO TID PRN Dysuria #30 tabs 11/29/24 Rx (Pyridium) tamsulosin 0.4 mg capsule 0.4 mg PO HS #14 caps 11/29/24 Rx Past Med/Surg History Problem List (Updated 11/29/24 @ 11:08 by Taras Louis PA-C) Pain due to ureteral stent UTI (urinary tract infection) (Acute) Urinary tract obstruction by kidney stone (Acute) Migraine aura occurring with and without headache COVID-19 (Acute) COVID-19 (Acute) Encounter for pre-operative examination Encounter for pre-operative examination Tardive dyskinesia (Chronic 10/05/12) Abdominal pain (Acute) Viral infection (Acute) Acute sinusitis (Acute) Nausea (Acute) Acute sinusitis (Acute) Dentalgia (Acute) Anorexia (Chronic) Constipation (Acute) GERD (gastroesophageal reflux disease) (Acute) GERD (gastroesophageal reflux disease) (Acute) Ovarian cyst (Acute) Medical History (Updated 11/29/24 @ 11:08 by Taras Louis PA-C) Nausea and vomiting after administration of anesthetic agent Kidney stones Hiatal hernia Vertigo Depression Anxiety Temporal lobe epilepsy pt states one neurologist said she had it, another said she didnt. Currently not taking any meds. gets "auras", denies any grand mal. Last aura was 1st week of jan 2018 Anorexia Migraine Surgical History History of esophagogastroduodenoscopy (EGD) History of cholecystectomy History of tooth extraction wisdom teeth History of nasal septoplasty Family History Father Family history of diabetes mellitus Grandmother (Paternal) Family history of diabetes mellitus Grandmother (Maternal) Family history of diabetes mellitus Uncle Family history of diabetes mellitus Social History Smoking Status: Never smoker Second Hand Exposure: Yes; Do You Dip or Chew Tobacco: No; Hx Alcohol Use: No Hx Substance Use: No Preferred Language: Polish Communication Ability: Effective Patient Service Specialist Required: No Beliefs That Will Affect Care: None Current Living Situation: Spouse, Parent and Family Feels Safe at Home: Yes Assistive Devices: None Review of Systems Review of Systems: See HPI above Physical Exam Physical Exam: General: Moderate distress secondary to right flank pain/lower abdominal pain; pleasant affect; anxious; non-toxic appearing; cooperative; thin; SpO2 100% on RA HEENT: normocephalic, atraumatic; PERRLA; vision and hearing intact Neck: supple; trachea midline Skin: warm, dry without signs of tenting; no cyanosis; no rashes, bruising, lesions, or erythema noted CV: chest wall NTP; RRR; S1/S2 normal; no murmurs/rubs/gallops; pulses intact and symmetric at radial, DP, and PT Lungs: no acute respiratory distress; symmetrical chest wall expansion; clear breath sounds across all lung fournier w/o adventitious sounds; no wheezing ABD: Soft, right lower quadrant and flank are TTP; no rashes or bruises appreciated in the abdomen or flanks bilaterally; left flank is NTP; negative Rovsing sign; BS present; no rebound/guarding; no distention Back: Positive CVA tenderness on the right side MSK: no tics or fasciculations; no edema noted in the LEs b/l, nonerythematous Neuro: A&Ox3; normal mood and affect; fluent speech; sensation intact and symmetric in the LEs b/l Results & Data Results & Data Vital Signs (Past 12 Hours) Vital Signs Temp Pulse Resp BP Pulse Ox O2 Del Method 11/27/24 14:27 36.1 C L 81 18 130/78 100 Room Air Laboratory Results Abnormal lab results 11/27/24 11/27/24 Range/Units 14:54 15:35 WBC 11.00 H (4.8-10.8) K/ul Neut # (Auto) 8.95 H (1.40-6.50) K/uL Lymph # (Auto) 1.13 L (1.20-3.40) K/uL [place] # (Auto) 0.81 H (0.11-0.59) K/uL Urine Ketones 2+ H (Negative) Urine Blood 2+ H (Negative) Ur Leukocyte Esterase 1+ H (Negative) Urine WBC (Auto) 11-20 H (0-5) /hpf Urine RBC (Auto) 11-20 H (0-2) /hpf Diagnostic Findings Abdomen/Pelvis CT 11/27/24 14:45 CT SCAN OF THE ABDOMEN AND PELVIS WITHOUT IV CONTRAST CLINICAL HISTORY: Right flank pain. COMPARISON STUDY: Abdominal CT dated 03/16/2013. TECHNIQUE: CT scan of the abdomen and pelvis is performed from the lung bases to the proximal femora. Images are reviewed in the axial, sagittal, and coronal planes. IV contrast was not administered for this examination. A dose lowering technique was utilized adhering to the principles of ALARA. CT DOSE: 392.21 mGy.cm FINDINGS: Lung bases: The heart is normal in size and without pericardial effusion. The lung bases are clear. Liver: The unenhanced liver is normal in size, contour, and attenuation. There is no intrahepatic biliary ductal dilatation. Gallbladder: Surgically absent noting clips in the gallbladder fossa. Spleen: Normal in size and attenuation. Pancreas: Unremarkable. Adrenal glands: Unremarkable. Kidneys: The unenhanced kidneys are normal in size. There is a 7 mm obstructing calculus in the right proximal ureter at L4-L5 seen on image #154. This causes moderate right hydroureteronephrosis. The right kidney is edematous and there is right-sided perinephric stranding/fluid. No additional right renal calculi are identified. No left renal calculi are seen and there is no left ureteral stone. There is no evidence of contour deforming renal mass lesion. Abdominal vasculature: The abdominal aorta is normal in course and caliber. Bowel: There is no bowel obstruction. Moderate fecal retention is seen throughout the colon. The appendix is not visualized. Question postsurgical change in the right lower quadrant. Peritoneum: There is no intraperitoneal free air or abdominal ascites. A naval piercing is in place. Lymphadenopathy: None. Pelvic viscera: The bladder and uterus are normal as visualized. A 5 cm cystic structure suggested in the right ovary on image #40. 3 fluid is noted in the cul-de-sac. Skeletal structures: No lytic or blastic lesions are seen. IMPRESSION: 1. There is a 7 mm obstructing calculus in the right proximal ureter. This causes moderate right hydroureteronephrosis. 2. No additional renal calculi are clearly identified in either kidney. 3. There is a 5 cm cystic structure in the posterior right adnexa, likely representing an ovarian cyst. 4. Free fluid in cul-de-sac is nonspecific and likely physiologic. 5. Additional findings as above. ACT 112: Negative or not required by law. Electronically signed by: Joseph Justin M.D. 11/27/2024 3:41 PM ECG Additional Comments: ECG ordered, pending Code Status & VTE Plan Code Status Full code VTE Prophylaxis Plan VTE Prophylaxis will be ordered: No Supervising Physician Co-Signing Physician Notes The patient was not seen by me. The chart was reviewed. Case discussed with TREASURE Ray. Agree with assessment and plan PG Care Time/CCT Total # of Minutes Spent Total Time Spent with Patient: Total time spent is greater than 50% in coordination of care (as documented) at patient's floor/unit and/or counseling patient: [place] [address] INT INP/OBS CARE 2/55MIN Patient Type New Medical Decision Making Moderate Complexity Diagnoses UTI (urinary tract infection) N39.0 Urinary tract obstruction by kidney stone N20.0; N13.8
[2024-11-27] MEDS: cefTRIAXone SODIUM 1,000 MG/50 ML BAG IV STA (16:56)
[2024-11-27] MEDS: PLASMA-LYTE A 1,000 ML IV SCH (17:38)
[2024-11-27] MEDS ORDERED: ONDANSETRON INJ 2 MG/ML 2 ML VIAL IV PRN (18:46)
[2024-11-27] MEDS ORDERED: MELATONIN 3 MG TAB PO PRN (18:46)
--- NOTE | 2024-11-27 21:06 | Emergency Department Note ---
ED Visit Note I was consulted by the Advanced Practice Provider. I personally made/approved the management plan and take responsibility for the patient management. This includes the aspects of: -History/Physical -MDM
[2024-11-28] MEDS: KETOROLAC TROMETHAMINE 15 MG/ML VIAL IV PRN (05:11)
[2024-11-28 07:12] LABS: Hematocrit (blood only) 34.0 % (37.0-47.0); Hemoglobin 11.1 g/dl (12.0-16.0); Immature Granulocytes # (auto) 0.01 K/uL (0.01-0.20); Immature Granulocytes % (auto) 0.2 %; Mean Corpuscular Hemoglobin 28.5 pg (25.0-34.0); Mean Corpuscular Volume 87.2 fL (80.0-100.0); Platelet Count 198 K/uL (130-400); RDW Standard Deviation 41.1 fL (36.4-46.3); Red Blood Count 3.90 M/uL (4.20-5.40); White Blood Count 5.33 K/ul (4.8-10.8)
[2024-11-28 07:24] LABS: Anion Gap 6.0 (3-11); Blood Urea Nitrogen 9.0 mg/dl (6-23); Calcium 8.2 mg/dl (8.6-10.3); Carbon Dioxide 24.0 mmol/L (21-32); Chloride 109.0 mmol/L (98-107); Creatinine Clr Calc Pharmacy 83.1 ml/min; Glucose 85.0 mg/dl (70-99(Fasting)); Potassium 3.8 mmol/L (3.5-5.1); Sodium 139.0 mmol/L (136-145)
--- NOTE | 2024-11-28 07:24 | Urology Consultation ---
Date of Consultation November 28, 2024 Assessment & Plan (1) Urinary tract obstruction by kidney stone: Plan Right proximal ureteral calculus with hydronephrosis and renal colic Pain control is not adequate at this stage Although she is not toxic I think we should intervene with cystoscopy right ureteral stent placement Had a conversation with her today about that option and the risks, benefits He did explain that she left a return in the future for definitive treatment of her stone. History of Present Illness Attending Physician: Wade Skinner MD History of Present Illness 34-year-old female who transferred here from [facility] She has had significant pain for the past 48 hours with associated nausea Has had a prior stone but passed it spontaneously No surgical interventions in the past Overall very healthy Not exhibiting signs of infection Hemodynamically stable CT personally reviewed and interpreted as she has relatively notable hydronephrosis and some perinephric stranding but no other significant pathology White count is 11 Creatinine 1.1 Allergies Allergy/AdvReac Type Severity Reaction Status Date / Time meperidine Allergy Severe ANAPHYLAXIS Verified 02/23/21 19:26 shellfish derived Allergy Intermediate HIVES/ITCHING Verified 02/23/21 19:26 THROAT prochlorperazine AdvReac Severe dizziness, Verified 02/23/21 19:26 [From Compazine] tachycardia, restless asenapine AdvReac Intermediate EXTREME Verified 02/23/21 19:26 MOOD CHANGES fluoxetine AdvReac Intermediate DYSTONIA Verified 02/23/21 19:26 olanzapine AdvReac Intermediate FACE Verified 02/23/21 19:26 MUSCLE CONTRACTURES Proton Pump Inhibitors AdvReac Intermediate DIARRHEA Verified 02/23/21 19:26 ziprasidone AdvReac Intermediate TACHYCARDIA Verified 02/23/21 19:26 Home Medications Medication Instructions Recorded Confirmed Type magnesium glycinate 400 mg (4 x 100 mg magnesium) PO 07/28/22 11/27/24 Rx DAILY #120 caps cephalexin 500 mg capsule 500 mg PO BID for 5 days 11/27/24 11/27/24 History lamotrigine 100 mg tablet 0 mg PO BID 11/27/24 11/27/24 History lamotrigine 25 mg tablet 0 mg PO UD 11/27/24 11/27/24 History ondansetron 4 mg disintegrating 4 mg PO UD PRN n/v 11/27/24 11/27/24 History tablet Patient History Medical History (Updated 11/27/24 @ 18:39 by Eduard Royal) Nausea and vomiting after administration of anesthetic agent Kidney stones Hiatal hernia Vertigo Depression Anxiety Temporal lobe epilepsy pt states one neurologist said she had it, another said she didnt. Currently not taking any meds. gets "auras", denies any grand mal. Last aura was 1st week of jan 2018 Anorexia Migraine Surgical History History of esophagogastroduodenoscopy (EGD) History of cholecystectomy History of tooth extraction wisdom teeth History of nasal septoplasty Family History Father Family history of diabetes mellitus Grandmother (Paternal) Family history of diabetes mellitus Grandmother (Maternal) Family history of diabetes mellitus Uncle Family history of diabetes mellitus Social History Smoking Status: Never smoker Second Hand Exposure: Yes; Do You Dip or Chew Tobacco: No; Hx Alcohol Use: No Hx Substance Use: No Preferred Language: Spanish Communication Ability: Effective Technical Sales Manager Required: No Beliefs That Will Affect Care: None Current Living Situation: Spouse, Parent and Family Feels Safe at Home: Yes Safety Concerns: Feels Safe At This Time Assistive Devices: None Physical Exam Constitutional: well developed and well nourished Neck: neck nontender Respiratory: normal respiratory effort; no respiratory distress and does not use accessory muscles Cardiovascular: Rate/Rhythm: regular rate Vessels: radial pulses present Extremities: no edema Gastrointestinal (Abdomen): Inspection/Auscultation: abdomen normal to inspection Percussion/Palpation: abdomen soft; abdomen nontender and no guarding Musculoskeletal: Head/Neck/Chest: normocephalic and head atraumatic Extremities: extremities normal to inspection Skin: no rashes and no lesions Trauma: no evidence of skin trauma Neurologic: awake; not obtunded Speech / Cognition: normal speech Motor/Sensory: no tremor Psychiatric: Orientation: alert and oriented x 3 Lymphatic: no lymphadenopathy Results & Data Vital Signs (Past 12 Hours) Vital Signs Temp Pulse Resp BP Pulse Ox O2 Del Method 11/28/24 07:16 36.8 C 83 18 104/68 100 Room Air 11/27/24 21:30 36.6 C 64 16 110/71 99 Room Air 11/27/24 20:00 64 18 109/70 99 Room Air PG Care Time/CCT Total # of Minutes Spent Total Time Spent with Patient: Total time spent is greater than 50% in coordination of care (as documented) at patient's floor/unit and/or counseling patient: Coding Level of Care Code 72750 IN/OBS CONSULT LVL 3,45M Diagnoses Urinary tract obstruction by kidney stone N20.0; N13.8
[2024-11-28] MEDS: ACETAMINOPHEN 1,000 MG/100 ML VIAL IV PRN (07:46)
[2024-11-28] MEDS ORDERED: MIDAZOLAM HCL 1 MG/ML 2ML VIAL ONE (12:48)
[2024-11-28] MEDS ORDERED: DEXAMETHASONE SOD INJ 4 MG/ML VIAL ONE (12:48)
[2024-11-28] MEDS ORDERED: ONDANSETRON INJ 2 MG/ML 2 ML VIAL ONE (12:48)
[2024-11-28] MEDS ORDERED: PROPOFOL IV EMULSION 10 MG/ML 20 ML VIAL IV ONE (12:48)
--- NOTE | 2024-11-28 13:39 | Anesthesiology Consultation ---
Date of Service November 28, 2024 Assessment & Plan (1) Encounter for pre-operative examination: Chart Review Chart Review: Acceptable Risk for Surgery and Patient NOT seen in Pre Admission Testing Consults Requested none History Surgery Operation Date: 11/28/24 07:00 Proposed Procedures p Cystoscopy, Right Stent Placement - Heron Gage MD Height/Weight Height: 5 ft 6.5 in Weight: 50 kg Allergies Allergy/AdvReac Type Severity Reaction Status Date / Time meperidine Allergy Severe ANAPHYLAXIS Verified 02/23/21 19:26 shellfish derived Allergy Intermediate HIVES/ITCHING Verified 02/23/21 19:26 THROAT prochlorperazine AdvReac Severe dizziness, Verified 02/23/21 19:26 [From Compazine] tachycardia, restless asenapine AdvReac Intermediate EXTREME Verified 02/23/21 19:26 MOOD CHANGES fluoxetine AdvReac Intermediate DYSTONIA Verified 02/23/21 19:26 olanzapine AdvReac Intermediate FACE Verified 02/23/21 19:26 MUSCLE CONTRACTURES Proton Pump Inhibitors AdvReac Intermediate DIARRHEA Verified 02/23/21 19:26 ziprasidone AdvReac Intermediate TACHYCARDIA Verified 02/23/21 19:26 Medications Home Medications Medication Instructions Recorded Confirmed Last Taken magnesium glycinate 400 mg (4 x 100 mg magnesium) PO 07/28/22 11/27/24 Unknown DAILY #120 caps cephalexin 500 mg capsule 500 mg PO BID for 5 days 11/27/24 11/27/24 Unknown lamotrigine 100 mg tablet 0 mg PO BID 11/27/24 11/27/24 Unknown lamotrigine 25 mg tablet 0 mg PO UD 11/27/24 11/27/24 Unknown ondansetron 4 mg disintegrating 4 mg PO UD PRN n/v 11/27/24 11/27/24 Unknown tablet Active Medications Generic Name Dose Route Start Last Admin Trade Name Freq PRN Reason Stop Dose Admin Parenteral Electrolytes 1,000 mls @ 80 mls/hr 11/27/24 17:15 11/28/24 11:22 Plasma-Lyte A Ph 7.4 IV 11/28/24 18:14 80 mls/hr .[id number] JOHN Administration Acetaminophen 1,000 mg in 100 mls @ 400 mls/hr 11/27/24 18:46 11/28/24 08:08 Ofirmev IV 11/30/24 18:45 Infused Q8H PRN Infusion Fever/Mild Pain (Pain 1-5) Ketorolac Tromethamine 15 mg 11/27/24 18:46 11/28/24 05:11 Ketorolac Tromethamine 15 Mg/Ml Vial IV 12/02/24 18:45 15 mg Q6H PRN Administration Pain (6-10) Past Medical History Medical History Nausea and vomiting after administration of anesthetic agent Kidney stones Hiatal hernia Vertigo Depression Anxiety Temporal lobe epilepsy pt states one neurologist said she had it, another said she didnt. Currently not taking any meds. gets "auras", denies any grand mal. Last aura was 1st week of jan 2018 Anorexia Migraine Past Family History Family History Father Family history of diabetes mellitus Grandmother (Paternal) Family history of diabetes mellitus Grandmother (Maternal) Family history of diabetes mellitus Uncle Family history of diabetes mellitus Past Surgical History Surgical History History of esophagogastroduodenoscopy (EGD) History of cholecystectomy History of tooth extraction wisdom teeth History of nasal septoplasty Social History Smoking Status: Never smoker Do You Dip or Chew Tobacco: No Hx Alcohol Use: No Alcohol type: wine and hard liquor alcohol intake frequency: a few times a month Hx Substance Use: No substance use type: does not use Physical Exam Vital Signs Last Vital Signs Temp 98.2 F 11/28/24 07:16 Pulse 83 11/28/24 07:16 Resp 18 11/28/24 07:16 BP 104/68 11/28/24 07:16 Pulse Ox 100 11/28/24 07:16 O2 Del Method Room Air 11/28/24 07:16 Testing Laboratory Results 11/28/24 06:39 11/28/24 06:39 Urine Color Yellow 11/27/24 15:35 Urine Appearance Clear (Clear) 11/27/24 15:35 Urine pH 6.5 (4.5-7.5) 11/27/24 15:35 Ur Specific [place] 1.017 (1.000-1.030) 11/27/24 15:35 Urine Protein Negative (Negative) 11/27/24 15:35 Urine Glucose (UA) Negative (Negative) 11/27/24 15:35 Urine Ketones 2+ (Negative) H 11/27/24 15:35 Urine Nitrite Negative (Negative) 11/27/24 15:35 Ur Leukocyte Esterase 1+ (Negative) H 11/27/24 15:35 Urine WBC (Auto) 11-20 /hpf (0-5) H 11/27/24 15:35 Urine RBC (Auto) 11-20 /hpf (0-2) H 11/27/24 15:35 U Hyaline Cast (Auto) 0-2 /lpf (0-2) 11/27/24 15:35 U Epithel Cells (Auto) 0-2 /hpf (0-2) 11/27/24 15:35 Urine Bacteria (Auto) None Seen (None Seen) 11/27/24 15:35 11/27/24 15:35 Urine Culture - Preliminary Urine,Clean Catch No growth - Less than 1,000 colonies/mL, Final report to follow.
[2024-11-28] MEDS: LACTATED RINGER'S 1,000 ML IV SCH (13:54)
[2024-11-28] MEDS ORDERED: ONDANSETRON INJ 2 MG/ML 2 ML VIAL IV PRN (14:06)
[2024-11-28] MEDS ORDERED: ATROPINE SULFATE 0.1 MG/ML 10ML SYR IV PRN (14:06)
[2024-11-28] MEDS ORDERED: ceFAZolin 330 MG/ML 1 GM VIAL ONE (15:26)
--- NOTE | 2024-11-28 15:43 | Operative Report ---
PG Post Operative Report Pre & Post Diagnosis Operation Date: 11/28/24 07:00 Pre-Op Diagnosis: Right Kidney Stone Post-Op Diagnosis: Right Kidney Stone I identified the patient and participated in the time-out.: Yes Procedure Operation Date: 11/28/24 07:00 Actual Procedures p Cystoscopy, Right Retrogram Pyelogram, Insertion Right Ureteral Stent(Right) - Heron Gage MD Surgeon Heron Gage MD Junior Graphic Designer none Estimated Blood Loss 0 Findings Consistent with Post-Op Diagnosis Specimens none Description of Procedure The patient was identified in the preoperative holding area, appropriate informed consents were reviewed and completed and the patient was transferred to the operative suite. Upon arrival, appropriate antibiotics and anesthesia were administered and the patient was placed in dorsal lithotomy position and prepped and draped in sterile fashion. Beginning case I passed a 21 Mongolian cystoscope with 30 degree lens. Inspection revealed a very healthy bladder. There were no mucosal abnormalities or stones within the bladder. Following my inspection I turned my attention of the right UO and cannulated with a sensor wire. There was some resistance in the proximal ureter just below the UPJ and no visible calculus was present I was able to manipulate a wire beyond it into the kidney. I then proceeded to try to place a 6 Mongolian by 24 cm double-J stent. It was a bit tight getting past the stone but I was able to ultimately dislodge the stone slightly and placed the stent with out great difficulty. There was a good curl in the kidney as well as the bladder. There is good drainage through and around the stent and the case was concluded. She was reversed of anesthesia and taken to the recovery room in stable condition. There were no complications. Of note, she will need to return in 1 to 2 weeks for definitive stone surgery. I attest to the content of the Intraoperative Record and any orders documented therein. Any exceptions are noted below.
--- NOTE | 2024-11-28 15:57 | Anesthesiology Progress Note ---
Date of Service November 28, 2024 Anesthesia Post Procedure Vital Signs Vital Signs: Temp Pulse Pulse Resp BP Pulse Ox O2 Del Method 11/28/24 15:50 60 16 108/57 L 100 Room Air 11/28/24 15:42 36.1 C L 68 16 107/61 100 Oxymask 11/28/24 13:45 36.8 C 76 20 109/64 96 Room Air 11/28/24 07:16 36.8 C 83 18 104/68 100 Room Air 11/27/24 21:30 36.6 C 64 16 110/71 99 Room Air 11/27/24 20:00 64 18 109/70 99 Room Air 11/27/24 18:00 66 17 121/74 98 Room Air O2 Flow Rate 11/28/24 15:50 11/28/24 15:42 6 11/28/24 13:45 11/28/24 07:16 11/27/24 21:30 11/27/24 20:00 11/27/24 18:00 Pain Intensity Right Flank: Pain Intensity: 6 Transfer of Care Handoff Completed per policy Notes Mental Status: alert / awake / arousable and participated in evaluation Patient Amnestic to Procedure: Yes Nausea / Vomiting: adequately controlled Pain: adequately controlled Airway Patency, RR, SpO2: stable & adequate BP & HR: stable & adequate Hydration State: stable & adequate Anesthetic Complications: no major complications apparent and Pt Satisfied with anesthetic care
--- NOTE | 2024-11-28 16:59 | Hospitalist Progress Note ---
Date of Service November 28, 2024 Assessment & Plan (1) UTI (urinary tract infection): (2) Urinary tract obstruction by kidney stone: Plan This patient is a 34-year-old female with PMH of kidney stones who presents on 11/27 for right flank pain. Patient originally went to [facility] ED on 11/25, but declined to A/P CT at that time. They obtained an ultrasound at bedside, which revealed hydronephrosis and presumed kidney stone. Patient was discharged on Keflex and recommended follow-up with urology. However, on 11/27, she reported that the pain became unbearable and she came to the hospital #Right-sided kidney stone | UTI A/P CT revealed a 7mm obstructing calculus in the right proximal ureter with moderate hydroureteronephrosis Urology consult appreciated Patient underwent ureteral stent placement on 11/28 IV Zofran as needed IV acetaminophen and Toradol as needed IVF with Plasma-Lyte at 80mL/hr x 2 L Ceftriaxone 2000 mg IV q24h Additional phenazopyridine PRN ordered for dysuria overnight #Ovarian cyst 5 cm cystic structure noted on A/P CT on the posterior right adnexa Patient reports she was aware of this; follows an outpatient Disposition: Continued stay on MedSurg due to pain; hopeful early discharge on 11/29 VTE PPx: Low risk, encourage ambulation Admission and Anticipated Discharge Date Admission Date: November 27, 2024 Subjective Mrs. Berrios is doing well today. She slept decent, but woke up around 4 AM with severe right lower abdominal, flank, and back pain. She rated the pain as a 9 out of 10 at that time, but after taking Toradol and Tylenol, the pain fully subsided by around 8 AM. She reports she has 0 out of 10 pain at this time. Additionally, she notes that she did have some dizziness with ambulation yesterday, but feels like that may be due to not having eaten anything in the past 24-hour. No burning with urination or blood in the urine. She is anxious, but feels ready for her stent today. She does note that she does not tolerate anesthesia well, and has concerns about going home this afternoon. ROS: Patient endorses RLQ abdominal pain, right flank pain, right LBP, dizziness, and some nausea. Patient denies fevers overnight, chills, night sweats, chest pain, SOB, cough, vomiting, burning with urination, or blood in the urine. Addendum at 1700: Patient assessed following her ureteral stent. She reports she is having "severe burning" like a bad urinary tract infection. She reports her pain at this time is 8 out of 10, but feels different from the pain she was having earlier. The right flank pain has largely resolved, but her urinary pain is constant like she has a bad bladder infection, with increased urinary frequency. She also reports that she felt agitated and "suicidal" when she woke up from anesthesia, and that this is normal for her; she is beginning to feel back to her baseline now. She expresses a strong desire to stay overnight for additional pain control and IV antibiotics. Review of Systems Review of Systems: See HPI above Physical Exam Physical Exam: Patient seen preoperatively: General: No acute distress; pleasant affect; anxious; non-toxic appearing; cooperative; thin; SpO2 100% on RA HEENT: normocephalic, atraumatic; PERRLA; vision and hearing intact Neck: supple; trachea midline Skin: warm, dry without signs of tenting; no cyanosis; no rashes, bruising, lesions, or erythema noted CV: chest wall NTP; RRR; S1/S2 normal; no murmurs/rubs/gallops; pulses intact and symmetric at radial, DP, and PT Lungs: no acute respiratory distress; symmetrical chest wall expansion; clear breath sounds across all lung fournier w/o adventitious sounds; no wheezing ABD: Soft, right lower quadrant and flank are TTP; no rashes or bruises appreciated in the abdomen or flanks bilaterally; left flank is NTP; negative Rovsing sign; BS present; no rebound/guarding; no distention Back: Positive CVA tenderness on the right side MSK: no tics or fasciculations; no edema noted in the LEs b/l, nonerythematous Neuro: A&Ox3; normal mood and affect; fluent speech; sensation intact and symmetric in the LEs b/l Results & Data Results & Data Vital Signs (Past 12 Hours) Vital Signs Temp Pulse Pulse Resp BP Pulse Ox O2 Del Method 11/28/24 16:10 74 16 112/62 100 Room Air 11/28/24 16:00 36.4 C L 75 16 107/65 100 Room Air 11/28/24 15:50 60 16 108/57 L 100 Room Air 11/28/24 15:42 36.1 C L 68 16 107/61 100 Oxymask 11/28/24 13:45 36.8 C 76 20 109/64 96 Room Air 11/28/24 07:16 36.8 C 83 18 104/68 100 Room Air O2 Flow Rate 11/28/24 16:10 11/28/24 16:00 11/28/24 15:50 11/28/24 15:42 6 11/28/24 13:45 11/28/24 07:16 PG Care Time/CCT Total # of Minutes Spent Total Time Spent with Patient: Total time spent is greater than 50% in coordination of care (as documented) at patient's floor/unit and/or counseling patient: Coding [place] [address] SUB INP/OBS CARE 2/35MIN Patient Type Established History Comprehensive Exam Comprehensive Medical Decision Making Moderate Complexity Diagnoses UTI (urinary tract infection) N39.0 Urinary tract obstruction by kidney stone N20.0; N13.8
[2024-11-28] MEDS ORDERED: PHENAZOPYRIDINE HCL 200 MG TAB PO PRN (17:03)
[2024-11-28] MEDS ORDERED: cefTRIAXone SODIUM 1,000 MG/50 ML BAG IV SCH (17:15)
[2024-11-28] MEDS: PHENAZOPYRIDINE HCL 200 MG TAB PO STA (17:36)
[2024-11-28] MEDS: cefTRIAXone SODIUM 2,000 MG/50 ML BAG IV STA (17:53)
--- NOTE | 2024-11-29 07:08 | Fluoroscopy Report ---
FL KUB CLINICAL HISTORY: RT STENT COMPARISON STUDY: CT scan dated 11/28/2019 FINDINGS: A single fluoroscopic spot images provided for interpretation. 15 seconds of fluoroscopic t jeancarlos was utilized. This image demonstrates the proximal pigtail right-sided nephroureteral stent. Ther e are surgical clips within the right upper quadrant consistent with a prior cholecystectomy. There i s a calcific density projected over the proximal aspect of the stent possibly representing a ureteral calculus. IMPRESSION: Intraoperative fluoroscopic spot image demonstrating the proximal pigtail of a right-huseyin ed nephroureteral stent ACT 112: Negative or not required by law. Electronically signed by: Morris Short M.D. 11/29/2024 7:07 AM
[2024-11-29 07:20] VITALS: RESP 18; O2SAT 100
[2024-11-29 07:49] LABS: Hematocrit (blood only) 36.0 % (37.0-47.0); Hemoglobin 12.4 g/dl (12.0-16.0); Mean Corpuscular Hemoglobin 29.4 pg (25.0-34.0); Mean Corpuscular Volume 85.3 fL (80.0-100.0); Platelet Count 220 K/uL (130-400); RDW Standard Deviation 38.9 fL (36.4-46.3); Red Blood Count 4.22 M/uL (4.20-5.40); White Blood Count 7.28 K/ul (4.8-10.8)
--- NOTE | 2024-11-29 07:57 | Discharge Summary ---
Discharge Summary Date of Service November 29, 2024 Principal Dx & Hospital Course #1 = Principal Diagnosis (1) UTI (urinary tract infection): (2) Urinary tract obstruction by kidney stone: (3) Pain due to ureteral stent: Plan This patient is a 34-year-old female with PMH of kidney stones who presents on 11/27 for right flank pain. Patient originally went to [facility] ED on 11/25, but declined to A/P CT at that time. They obtained an ultrasound at bedside, which revealed hydronephrosis and presumed kidney stone. Patient was discharged on Keflex and recommended follow-up with urology. However, on 11/27, she reported that the pain became unbearable and she came to the hospital #Right-sided kidney stone | UTI | pain due to ureteral stent A/P CT revealed a 7mm obstructing calculus in the right proximal ureter with moderate hydroureteronephrosis Urology consult appreciated Patient underwent ureteral stent placement on 11/28 She stayed overnight on 11/28 due to pain related to her stent IV Zofran PRN IV acetaminophen and Toradol PRN IVF with Plasma-Lyte at 80mL/hr x 2 L IV ceftriaxone q24h x 2 days in the hospital Additional pain control medications prescribed on discharge: Tramadol 50 mg p.o. every 6 hours as needed for severe breakthrough pain Phenazopyridine 200 mg tablets 3 times daily as needed for dysuria Oxybutynin ER 5 mg tablets every morning Tamsulosin 0.4 mg tablets at bedtime Patient will need to follow-up with urology as an outpatient to have stent removed #Ovarian cyst 5 cm cystic structure noted on A/P CT on the posterior right adnexa Patient reports she was aware of this; follows an outpatient Date of discharge 08/29: VSS Mrs. Berrios had a rough night last night. She reported her pain last night was "actually worse than the kidney stone". She woke up around midnight with 8 out of 10 pain, that was not alleviated by Toradol. She reports she was crying and pacing [id number] throughout the room to help stop her abdominal cramping. Overall, she had a very poor time tolerating the stent initially. She then reports that after receiving oxybutynin and tamsulosin this morning, her pain is now down to a 3 out of 10. She reports her pain is currently managed, and if it remains at this level, she would be open to going home this afternoon. She reports her father would be available to come to the hospital to pick her up and transport her home. ROS: Patient endorses facial flushing, right lower quadrant abdominal pain (improving), severe right-sided lower back pain (improving), chills overnight (resolved), burning with urination, nausea, and blood in her urine with small clots. Patient denies fever, chest pain, SOB, diarrhea, or vomiting. Disposition: Discharge home Notes For Next Care Provider Patient hospitalized for a 7 mm right sided obstructive kidney stone. Underwent a cystoscopy with right ureteral stent placement with Dr. Gage on 11/28. Initially, she had difficulty with tolerating this done following the procedure, however her pain was controlled best with oxybutynin and tamsulosin. Discharged on the following medications: Tramadol, oxybutynin, tamsulosin, and Pyridium Despite negative urine culture today, patient is still endorsing burning with urination. She received IV Rocephin x 2 while inpatient. Advised to complete 3 additional days of her previously prescribed Keflex 500 mg twice daily upon discharge. Patient will need follow-up with urology for stent removal. Admission HPI Per Admitting Provider Mrs. Berrios is a 34-year-old female with PMH of kidney stones and migraines. She presented on 11/27 for intractable right lower back, flank, and lower quadrant pain. Patient was recently at [facility] on Saturday 11/25 due to this pain. At that time, she declined an A/P CT due to prior medical history. They obtained an ultrasound that showed hydronephrosis, and a positive UA for UTI. At that time, she was told that she likely had a kidney stone, and needed to connect with a urologist. She was discharged on Keflex from [facility]. Today, her right flank pain became unbearable. She reported it was the "worst pain of her life"; 9 out of 10 earlier today. She did take ibuprofen and Tylenol at home to take the edge off, but this did not help. Thus, she decided to drive here from [place]. The pain radiates down towards her right groin. It is currently a 4/10, and well-controlled with IV acetaminophen and Toradol in the ED. Patient does have a prior history of kidney stones, with the last kidney stone being 5 mm; the stone passed independently. Additionally, patient reports that she had an episode of chest pain in the ED while sitting in her chair that lasted 5 minutes. No prior cardiac history or history of MIs. She believes it was either due to the her anxiety or the abdominal pain being overwhelming. Patient is not currently on medications on a daily basis. She was previously on lamotrigine for her migraines and fibromyalgia. Patient does have a severe allergy to Demerol, and was told never to take this medication. She was tolerating the Keflex well prior to coming to the hospital, and is amenable to trying IV ceftriaxone while in the hospital. Additionally, she endorses nausea but no vomiting at home. Patient denies smoking, tobacco use, alcohol use, or IV drug use. She has a 2-year-old daughter (Myranda); family is watching her daughter. Patient's vitals are stable at time of admission. ED Course: Toradol 15 mg IV x 2 NSS 1000 L IV Acetaminophen 1000 mg IV Ceftriaxone 1000 mg IV Zofran 4 mg IV ROS: Patient endorses chills/rigors, lightheadedness, crushing chest pain on arrival (resolved), RLQ abdominal pain, right flank pain, right lower back pain, and nausea. Patient denies fevers, night-sweats, headache, vomiting, diarrhea, burning with urination, blood in the urine, blood in the bowel, or numbness/tingling in the arms or legs. Admission Exam Per Admitting Provider General: Moderate distress secondary to right flank pain/lower abdominal pain; pleasant affect; anxious; non-toxic appearing; cooperative; thin; SpO2 100% on RA HEENT: normocephalic, atraumatic; PERRLA; vision and hearing intact Neck: supple; trachea midline Skin: warm, dry without signs of tenting; no cyanosis; no rashes, bruising, lesions, or erythema noted CV: chest wall NTP; RRR; S1/S2 normal; no murmurs/rubs/gallops; pulses intact and symmetric at radial, DP, and PT Lungs: no acute respiratory distress; symmetrical chest wall expansion; clear breath sounds across all lung fournier w/o adventitious sounds; no wheezing ABD: Soft, right lower quadrant and flank are TTP; no rashes or bruises appreciated in the abdomen or flanks bilaterally; left flank is NTP; negative Rovsing sign; BS present; no rebound/guarding; no distention Back: Positive CVA tenderness on the right side MSK: no tics or fasciculations; no edema noted in the LEs b/l, nonerythematous Neuro: A&Ox3; normal mood and affect; fluent speech; sensation intact and symmetric in the LEs b/l Discharge Exam General: No acute distress; pleasant affect; anxious; non-toxic appearing; cooperative; SpO2 100% on RA HEENT: normocephalic, atraumatic; PERRLA; vision and hearing intact Neck: supple; trachea midline Skin: warm, dry without signs of tenting; no cyanosis; no rashes, bruising, lesions, or erythema noted CV: chest wall NTP; RRR; S1/S2 normal; no murmurs/rubs/gallops; pulses intact and symmetric at radial, DP, and PT Lungs: no acute respiratory distress; symmetrical chest wall expansion; clear breath sounds across all lung fournier w/o adventitious sounds; no wheezing ABD: Soft, right lower quadrant and flank are mildly TTP; no rashes or bruises appreciated in the abdomen or flanks bilaterally; left flank is NTP; negative Rovsing sign; BS present; no rebound/guarding; no distention Back: Positive CVA tenderness on the right side MSK: no tics or fasciculations; no edema noted in the LEs b/l, nonerythematous Neuro: A&Ox3; normal mood and affect; fluent speech; sensation intact and symmetric in the LEs b/l Discharge Plan Discharge Items Patient Disposition: Home - Self-Care Reason For Visit: 7MM KIDNEY STONE Discharge Diagnosis: right ureteral stone Condition on Discharge: Fair Activity: Resume your previous activity Lifting: Gradually increase as tolerated Bathing: No limitations Sexual Activity: When tolerated Exercise/Sports: Gradually increase as tolerated Driving/Machine Use: Resume 1 day after discharge Non-emergency contact: Urologist Call non-emergency contact if: you have any medication questions, your pain is concerning for you, you have a fever and your temperature is above 101.5 Follow-up/Referrals: Wallace Frias PA-C [Primary Care Provider] - Diet: Regular Addtl Attending Provider Instructions: Please continue your previous diet, take all medications as prescribed and keep all follow-ups as scheduled. Please call our office at [phone] with any questions, concerns or need to reschedule appointments for any reason. We are happy to assist you. While you have a ureteral stent in place: Some discomfort is normal. Certain movements may trigger pain or a feeling that you need to urinate. You may also feel mild soreness or pressure before or during urination. These symptoms should go away a few days after the stent is removed. Your urine may be slightly pink or red. This is due to bleeding caused by minor irritation from the stent. This may happen on and off while you have the stent, it is not harmful and is to be expected. Medication to help minimize discomfort or bladder spasms, or to prevent infection may be prescribed. Take this as directed. Drink plenty of fluids to help flush out your urinary tract. If you go home with a catheter, wash with soapy water and a fresh washcloth twice daily. We recommend mild bar soap such as Dial or Dove. How long will you need a stent? An appointment should already be made for you for stent removal, unless directed otherwise. The stent is often taken out after the blockage in the ureter is treated or the ureter has healed. This may take 1-2 weeks, or longer. If a stent is needed for a longer period of time, it may need to be exchanged every few months. Likely prior to your followup appointment you will be asked to get an X-ray, please complete this the night before or morning of your appointment. When to call [facility] at [phone]: Your urine contains heavy blood clots You are constantly leaking urine Fever of 101F or higher, chills, nausea, or vomiting Your pain is not relieved with medication The end of the stent comes out of your urethra Addtl Service Delivery Director Provider Instructions: You are hospitalized at [facility] from 11/27 for 11/29 for an obstructive right sided kidney stone measuring 7 mm. Given the size of the stone, and intractable right lower back, flank, and stomach pain, you were seen by our urology team who elected to place a ureteral stent. The stent helps facilitate the passage of the stone. You were treated with IV pain medications (acetaminophen and Toradol), antinausea medications (Zofran), as well as an IV antibiotic called ceftriaxone for presumed UTI. Given your vitals are currently stable, your report your pain is managed on your current regimen, and you did not have an elevated white blood cell count to indicate signs of severe infection, we feel that you are safe to return home at this time. New prescriptions on discharge: - Oxybutynin 5 mg daily in the morning - Tamsulosin ("Flomax") 0.4 mg before bedtime - Phenazopyridine ("Pyridium") 200 mg tablets up to 3 times daily as needed for pain with urination - Tramadol 50 mg tablets to be taken every 6 hours as needed for severe breakthrough pain Please note that tramadol is an opioid analgesic. Please do not operate heavy machinery or drive a vehicle while taking. We recommend that you attempt to stick to Tylenol 500 mg tablets as needed for your pain, and only use tramadol for breakthrough pain (scale 7-10). Please do not exceed 3000 mg of Tylenol daily. While your urine culture shows no growth to date, you reported burning with urination prior to leaving the hospital. We recommend that you complete the course of cephalexin 500 mg twice daily tablets x 3 additional days, which was previously prescribed prior to hospitalization. Please plan to follow-up with your PCP in the next 7 to 10 days for a transitional care appointment. You will also need to follow-up with our urology team for eventual stent removal If you develop any new or worsening symptoms, such as fever, chills, intractable right flank pain, nausea, vomiting, or burning with urination, please return to the emergency department immediately. It was a pleasure take care of you. Please reach out with any questions or concerns. Sincerely, The Hospital medicine team at [facility] Pending Studies at Discharge: No Stand-Alone Forms: My [facility] Medications and DC Order Prescriptions: New tramadol 50 mg tablet 50 mg PO Q6H PRN (Reason: pain) Qty: 20 0RF tamsulosin 0.4 mg Capsule 0.4 mg PO HS Qty: 14 0RF Rx Instructions: Take 1 capsule by mouth at nighttime phenazopyridine [Pyridium] 200 mg Tablet 200 mg PO TID PRN (Reason: Dysuria) Qty: 30 0RF Rx Instructions: Take 1 tablet by mouth up to 3 times daily as needed for pain with urination oxybutynin chloride 5 mg tablet extended release 24hr 5 mg PO DAILY Qty: 14 0RF Rx Instructions: Take 1 tablet daily in the morning Continued magnesium glycinate 100 mg magnesium capsule 400 mg PO DAILY Qty: 120 2RF Patient Comments: 11/27- otc unable to verify cephalexin 500 mg capsule 500 mg PO BID Patient Comments: filled 11/25 5 day supply #10 ondansetron 4 mg tablet,disintegrating 4 mg PO UD PRN (Reason: n/v) lamotrigine 25 mg tablet 0 mg PO UD Patient Comments: last filled 08/12 20 day supply #164 Rx Instructions: 25 mg PO bid X 1 week, then 50mg bid X 1 week, then 75mg bid X 1 week lamotrigine 100 mg tablet 0 mg PO BID Patient Comments: 11/27- No fill history unable to verify Discharge Orders: Discharge Order (Routine); Ordered 11/29/24 Ordered By: Taras López/Other Patient Handouts: Having a Ureteral Stent Admission Data Admit Date/Time: 11/28/24 17:01 Attending Provider: Wade Skinner Admit Provider: Adrian Calvo Primary Care Provider: Wallace Frias Other Providers: Heron Gage; Adrian Calvo Hospital Stay Data Consultations 11/27/24 16:24 Consult Urology Routine 11/27/24 16:51 ED Decision to Admit Stat Procedures Performed Operation Date: 11/28/24 07:00 Actual Procedures p Cystoscopy, Right Retrogram Pyelogram, Insertion Right Ureteral Stent(Right) - Heron Gage MD Diagnostic Imagining Performed 11/27/24 14:45 CT abd pelvis wo con Stat 11/28/24 FL KUB Routine Pending Results Patient Have Any Pending Studies at Discharge: No Discharge Instructions Given to Patient (Per Discharging Provider) Please continue your previous diet, take all medications as prescribed and keep all follow-ups as scheduled. Please call our office at [phone] with any questions, concerns or need to reschedule appointments for any reason. We are happy to assist you. While you have a ureteral stent in place: Some discomfort is normal. Certain movements may trigger pain or a feeling that you need to urinate. You may also feel mild soreness or pressure before or during urination. These symptoms should go away a few days after the stent is removed. Your urine may be slightly pink or red. This is due to bleeding caused by minor irritation from the stent. This may happen on and off while you have the stent, it is not harmful and is to be expected. Medication to help minimize discomfort or bladder spasms, or to prevent infection may be prescribed. Take this as directed. Drink plenty of fluids to help flush out your urinary tract. If you go home with a catheter, wash with soapy water and a fresh washcloth twice daily. We recommend mild bar soap such as Dial or Dove. How long will you need a stent? An appointment should already be made for you for stent removal, unless directed otherwise. The stent is often taken out after the blockage in the ureter is treated or the ureter has healed. This may take 1-2 weeks, or longer. If a stent is needed for a longer period of time, it may need to be exchanged every few months. Likely prior to your followup appointment you will be asked to get an X-ray, please complete this the night before or morning of your appointment. When to call [facility] at [phone]: Your urine contains heavy blood clots You are constantly leaking urine Fever of 101F or higher, chills, nausea, or vomiting Your pain is not relieved with medication The end of the stent comes out of your urethra Total Time Total Time Spent Total Time Spent (In Minutes): 40 Coding Level of Care Code 85292 INP/OBS DISCH >30 MIN Diagnoses UTI (urinary tract infection) N39.0 Urinary tract obstruction by kidney stone N20.0; N13.8 Pain due to ureteral stent T83.84XA
[2024-11-29 08:07] LABS: Anion Gap 11.0 (3-11); Blood Urea Nitrogen 12.0 mg/dl (6-23); Calcium 9.1 mg/dl (8.6-10.3); Carbon Dioxide 22.0 mmol/L (21-32); Chloride 104.0 mmol/L (98-107); Creatinine Clr Calc Pharmacy 72.6 ml/min; Glucose 76.0 mg/dl (70-99(Fasting)); Potassium 3.9 mmol/L (3.5-5.1); Sodium 137.0 mmol/L (136-145)
--- NOTE | 2024-11-29 08:08 | Urology Progress Note ---
Date of Service November 29, 2024 Assessment & Plan (1) Urinary tract obstruction by kidney stone: Plan: - Pt POD#1 s/p cystoscopy and right ureteral stent placement - Afebrile with stable vitals - Lab work reviewed - creatinine 0.87, WBC 7.28 - Urine culture prelim no growth - She is poorly tolerating ureteral stent - Continue Ketorolac and analgesia as needed - Added Tamsulosin and oxybutynin for stent managementrecommend continue at discharge - Continue with Pyridium prn - Expected clinical course reviewed, all questions answered - Will arrange outpatient follow-up with our service to set up definitive stone management - will sign off, please contact our service with any additional questions or concerns Admission and Anticipated Discharge Date Admission Date: November 28, 2024 Subjective Patient seen and examined at bedside this morning. She is awake and resting in bed. Reports significant right sided discomfort since procedure. She is voiding spontaneously. Reports low appetite and some nausea. No fever or chills. Review of Systems Constitutional: as per Subjective / HPI Genitourinary: as per Subjective / HPI Physical Exam Constitutional: no acute distress Respiratory: normal respiratory effort; no respiratory distress and no labored breathing Gastrointestinal (Abdomen): Inspection/Auscultation: abdomen normal to inspection Musculoskeletal: Head/Neck/Chest: normocephalic Neurologic: moves all extremities and awake Psychiatric: Orientation: alert and oriented x 3 Results & Data Vital Signs (Past 12 Hours) Vital Signs Temp Pulse Resp BP Pulse Ox O2 Del Method 11/29/24 07:19 36.6 C 93 H 18 116/65 100 Room Air 11/29/24 04:09 36.9 C 72 16 122/72 97 Room Air 11/28/24 22:58 36.7 C 63 16 119/75 100 Room Air PG Care Time/CCT Total # of Minutes Spent Total Time Spent with Patient: Total time spent is greater than 50% in coordination of care (as documented) at patient's floor/unit and/or counseling patient: Coding Level of Care Code 04455 SUB INP/OBS CARE 03/02MIN Diagnoses Urinary tract obstruction by kidney stone N20.0; N13.8
[2024-11-29] MEDS: TAMSULOSIN HCL 0.4 MG CAP PO ONE (09:06)
[2024-11-29 15:02] VITALS: BP 111/72; PULSE 70; TEMP 97.5
[2024-11-29] MEDS ORDERED: cefTRIAXone SODIUM 2,000 MG/50 ML BAG IV SCH (17:00)
[2024-11-29] MEDS ORDERED: TAMSULOSIN HCL 0.4 MG CAP PO SCH (21:00)
== END 2024-11-29 17:08 | disposition home or self-care (01) | DRG 660 ==
LOC: SUATTDRO → EDINP 14:25 → ED 14:25 → SUATTDRO 17:11 → 3W 18:45